=== PATIENT | female | born 1975 | race Caucasian/White ===

== ENCOUNTER → 2016-12-20 | Day surgery (SDC) | payer OTHER ==
[~2016-12-20] VITALS: Ht 170.2 cm; Wt 150.2 kg
[~2016-12-20] MED LIST: ARMOUR THYROID60 MG PO; NORCO 5-325 TA1 EACH PO; VITAMIN D2000 UNI1 PO; VITAMIN E400 UNI3 PO; ZIAC 10 MG10 MG PO
--- NOTE | ~2016-12-20 | OR ---
PATIENT'S NAME: PEPITO CASTILLO [facility] AGE: 41 Y [address] ROOM: [place] [address] [place] [facility] [place]: 12/20/2016 OR/Procedure Report DISCHARGE DATE: FAMILY PHYSICIAN: Sandra Guerra APRN ATTENDING PHYSICIAN: Teodoro Ramos SURGEON: Teodoro Ramos MD GAUGER DELIVERY: DATE OF PROCEDURE: 12/20/2016 PREOPERATIVE DIAGNOSES: 1. Right nephrolithiasis. 2. Persistent right flank and abdominal pain. POSTOPERATIVE DIAGNOSES: 1. Right nephrolithiasis. 2. Persistent right flank and abdominal pain. 3. Bladder lesion. 4. Pathology pending. PROCEDURES PERFORMED: 1. Cystoscopy and right stent placement. 2. Bladder biopsy. 3. Right extracorporeal shock wave lithotripsy. ANESTHESIA: Sedation. INDICATION: This is a 41-year-old lady who has been evaluated for right-sided abdominal pain. She had an ultrasound evaluating her gallbladder. This demonstrated probable stones. She underwent a CT scan. She has a number of stones on the right side with a dominant 6 mm stone. They were not obstructing, but with her ongoing symptoms, there was a question of whether or not she was intermittently obstructing. No other etiology has been determined. Based on her ongoing symptoms and the natural history of stones, she has opted to go ahead with intervention. Because of the pain symptoms, I have recommended that we stent her around the lithotripsy. DESCRIPTION OF PROCEDURE: Having obtained her informed consent, the patient was taken to the cystoscopy suite. She was prepped and draped sterilely and in lithotomy position. IV sedation was administered. A 21-Turkish cystoscope was assembled and guided into the urethra. The course of the urethra was unremarkable. Upon entering the bladder, we saw some papillary-appearing tissue just distal to the right orifice. Hopefully, it was just some inflammatory tissue, but it certainly merits biopsy. Careful examination of the bladder using the 30- and 70-degree lenses revealed no other abnormalities. PATIENT'S NAME: PEPITO CASTILLO [facility] AGE: 41 Y [address] ROOM: [place] [address] [place] [facility] [place]: 12/20/2016 OR/Procedure Report DISCHARGE DATE: FAMILY PHYSICIAN: Sandra Guerra APRN ATTENDING PHYSICIAN: Teodoro Ramos Fluoroscopy was undertaken. Her stone shadows were noted in the right upper quadrant. Study was limited somewhat by her body habitus. She was well over 300 pounds. I passed a guidewire up the right side. Over that, I passed a 4.8 Multi-Link stent. We had a nice level of placement cystoscopically and fluoroscopically. I then placed the cold cup biopsy forceps. I took a biopsy of the above-noted tissue. I then used the Bugbee to cauterize the biopsy site and the tissue around the periphery. This completely obliterated the lesion. We had good hemostasis. The bladder was drained. The patient was now moved to the lithotripsy suite. The 6 mm stone was brought into the second focal point ellipsoid, and fragmentation was begun. We started at 16 kV and worked up to a maximum of 24 kV. After 2800 impulses, I could not appreciate the stone. The other 3 mm lesions were too small to appreciate fluoroscopically. Hopefully, she will be able to mobilize those after a period of stenting. The patient tolerated the procedure well. Blood loss was negligible. The above-noted specimen was sent. The patient returned to the outpatient recovery area awake and in stable condition. TEODORO RAMOS MD [facility]/gabriel /[id number] CC: Sandra Guerra APRN d: 12/20/16 1520 t: 01/03/17 1013, OPERATIVE SUMMARY
== END ==
LOC: GPOC 12-12 10:00 → GSDC 07:00
PROC: 0TFBXZZ Fragmentation in Bladder, External Approach (ICD-10-PCS; principal; 2016-12-20)
PROC: 0T768DZ Dilation of Right Ureter with Intraluminal Device, Via Natural or Artificial Opening Endoscopic (ICD-10-PCS; principal; 2016-12-20)
PROC: 0TBB8ZX Excision of Bladder, Via Natural or Artificial Opening Endoscopic, Diagnostic (ICD-10-PCS; principal; 2016-12-20)
DX: N20.0 Calculus of kidney (principal); R10.11 Right upper quadrant pain; E66.9 Obesity, unspecified; I10 Essential (primary) hypertension
CPT/HCPCS: C1769; C2617; J1956; J2001; J7120